=== PATIENT | female | born 1930 | race Caucasian/White ===

== ENCOUNTER → 2016-11-08 | Outpatient (CLI) | payer MEDICAID ==
[~2016-11-08] MED LIST: AC325T; AC500T PO; ACHD5005 PO; ALN10T PO; AMOX-355 PO; ASP325TEC PO; ASPI-587 PO; BRIM5DRO OS; CALC-794 PO; CARV3.12T PO; DIGO125T; DILT240C PO; DILT60TA PO; DLT60T PO; ENLP2.5T PO; FRSM20T PO; FRSM40T PO; FURO20TA4 PO; GUAI400T51 PO; HYDR-707 PO; LEVO500T69 PO; LNS30CCR PO; LNZ600T PO; LSNP10T; METO50TA7 PO; MIRT15TA6 PO; MUPI22OI2 TP; NFR150C PO; OMEP20CA12 PO; ONDAN4ODT PO; POT CHLORIDE PO; POTA10CA43 PO; PRC25SU; PROM25SU10; PROMETHAZINE/CODEINE; SIMV40TA2 PO; WARF-47 PO; WARF1TAB6 PO; WARF4TAB PO; WRF2T; WRF2T PO
== END ==
LOC: CARD 13:53
PROVIDERS: ATTEND Internal Medicine Cardiovascular Disease
DX: I48.2 Chronic atrial fibrillation (principal); I25.10 Atherosclerotic heart disease of native coronary artery without angina pectoris; I50.22 Chronic systolic (congestive) heart failure; I34.8 Other nonrheumatic mitral valve disorders; E78.4 Other hyperlipidemia; F84.8 Other pervasive developmental disorders; Z79.01 Long term (current) use of anticoagulants
CPT/HCPCS: 93306